=== PATIENT | male | born 1995 | race Caucasian/White ===

== ENCOUNTER 2018-03-19 07:31 | Emergency (ER) | payer OTHER ==
[~2018-03-19] VITALS: Ht 177.8 cm; Wt 117.9 kg
[2018-03-19 07:39] VITALS: BP 135/77
[2018-03-19 08:02] VITALS: BP 135/77
== END 2018-03-19 08:02 | disposition home or self-care (01) ==
LOC: MED 07:31
DX: R10.13 Epigastric pain (principal)
CPT/HCPCS: 99283